=== PATIENT | female | born 1960 | race Caucasian/White ===

== ENCOUNTER 2019-06-03 15:48 | Emergency (ER) | payer SELFPAY ==
[2019-06-03 15:49] VITALS: BP 121/75; PULSE 81; RESP 20; TEMP 36.8; O2SAT 97; BMI 20.7
--- NOTE | 2019-06-03 16:13 | W.ED.SOB ---
HPI - SOB/Dyspnea General: Chief Complaint: Shortness of Breath/Dyspnea Stated Complaint: SOB Time Seen by Provider: 06/03/19 16:13 Source: patient Mode of arrival: ambulatory Limitations: no limitations History of Present Illness: HPI Narrative: Patient is a very pleasant 59-year-old female who presents to ED today with complaints of a productive cough, feeling weak, fatigue, body aches, and a fever of 101.7 that initially began on ; patient states fever has subsided since then but continues to feel weak, have body aches, and is very bothered by this severe productive cough; states she will cough so hard that she will feel like she needs to vomit; she also reports some mild nonbloody diarrhea over the past 2 days; patient is an otherwise very healthy female with no past medical conditions and takes no daily medications Associated symptoms: Reports chest congestion and fever(s) (on ); Deny abdominal pain, chest pain, dizziness, hemoptysis, lightheadedness, nausea, palpitations, syncope or vomiting Review of Systems Const: Reports: fever (on ), body aches and fatigue; Denies: chills Eyes: Denies: blurry vision ENMT: Denies: enlarged tonsils or painful swallowing Card: Denies: chest pain, palpitations, irregular heart rhythm, edema, lightheadedness, syncope or pre-syncope Resp: Reports: shortness of breath, productive cough, pain on inspiration and chest congestion; Denies: non-productive cough, wheezing, stridor, change in phlegm color or coughing up blood GI: Denies: abdominal pain, nausea, vomiting or diarrhea : Denies: flank pain, difficulty urinating, painful urination or urinary frequency Musc: Denies: neck pain or back pain Skin/Breast: Denies: rash Neuro: Reports: headache; Denies: numbness in extremities, weakness in extremities, changes in sensation, lack of coordination, frequent falls or dizziness PFSH ED PFSH: Statuses (acute, chronic, etc) shown below reflect problem list status as previously entered and may not be historically accurate Social History Smoking and tobacco status: never smoked Physical Exam Const: COMMON NORMALS: no apparent distress, average body habitus, oriented x3, no limitations, healthy appearing, alert and well nourished HENMT: COMMON NORMALS: normocephalic and head/scalp atraumatic HEAD & SCALP: normocephalic and atraumatic Eye: COMMON NORMALS: PERRL and EOMs intact bilaterally PUPIL: Yes PERRL Neck/C-Spine: COMMON NORMALS: full ROM, no lymphadenopathy, supple and no meningeal signs Chest: COMMONS NORMALS: inspection of chest normal Resp: COMMON NORMALS: normal respiratory effort and clear to auscultation bilaterally AUSCULTATION: clear to auscultation bilaterally Cardio: COMMON NORMALS: regular rate and regular rhythm RATE: regular rate RHYTHM: regular rhythm GI: COMMON NORMALS: normal to inspection, nondistended, normoactive bowel sounds, soft to palpation, non-tender, no hepatosplenomegaly and no masses PALPATION: Yes soft and Yes no hepatosplenomegaly : COMMON NORMALS: Yes no CVA tenderness BLADDER/KIDNEY EXAM: Yes no CVA tenderness Back/Pelvis: COMMON NORMALS: no CVA tenderness and thoracic and lumbar spine normal to inspection Extremity: COMMON NORMALS: normal to inspection Neuro: THEE COMA SCALE: document GCS findings Thee coma scale eye opening: Spontaneous [place] coma scale verbal response: Orientated [place] coma scale motor response: Obey commands Thee coma scale total score: 15 COMMON NORMALS: oriented x3 SENSORIUM/ORIENTATION: Yes alert MENINGEAL SIGNS: Yes no meningeal signs Skin: COMMON NORMALS: no rashes or lesions noted GENERAL SKIN EXAM: no rashes or lesions noted Course Vital Signs: Vital signs: Vital Signs Temperature 98.3 F 06/03/19 15:49 Pulse Rate 92 06/03/19 23:28 Respiratory Rate 16 06/03/19 23:28 Blood Pressure 123/71 06/03/19 23:28 Pulse Oximetry 95 06/03/19 23:28 MDM - SOB/Dyspnea Lab Data: Labs: Lab Results 06/03/19 06/03/19 06/03/19 Range/Units 17:00 17:00 17:30 WBC 2.3 L (4.0-10.0) 10^3/ uL RBC 4.70 (4.1-5.3) 10^6/u L Hgb 13.4 (11.5-15.3) g/dL Hct 39.9 (37.0-47.0) % MCV 84.9 (81-99) fL MCH 28.5 (28.0-34.0) pg MCHC 33.6 (30.0-36.0) g/dL RDW 12.5 (12.1-15.1) % Plt Count 183 (130-400) 10^3/c mm MPV 9.5 (7.4-10.4) fL Neut % (Auto) 44.5 % Lymph % (Auto) 39.2 % [place] % (Auto) 15.9 % Eos % (Auto) 0.0 % Baso % (Auto) 0.4 % Neut # (Auto) 1.0 L (1.8-7.7) 10^3/u L Lymph # (Auto) 0.9 (0.8-4.8) 10^3/u L [place] # (Auto) 0.4 (0.2-0.9) 10^3/u L Eos # (Auto) 0.0 (0.0-0.8) 10^3/u L Baso # (Auto) 0.0 (0.0-0.1) 10^3/u L Nucleated RBC % (a uto) 0 % Nucleated RBCs # 0.0 /100WBC Sodium 135 L (136-145) mmol/L Potassium 3.6 (3.5-5.1) mmol/L Chloride 95 L (98-107) mmol/L Carbon Dioxide 27 (22-29) mmol/L Anion Gap 16.6 (5-19) BUN 8 (6-20) mg/dL Creatinine 0.8 (0.5-0.9) mg/dL GFR Calculation 73.9 L (90-130) mL/min Glucose 112 H (74-109) mg/dL Calcium 9.0 (8.5-10.5) mg/dL Total Bilirubin 0.2 (0.15-1.2) mg/dL AST 47 H (0-32) U/L ALT 28 (0-33) U/L Alkaline Phosphata se 75 (35-105) IU/L Total Protein 7.0 (6.6-8.7) g/dL Albumin 3.9 (3.5-5.2) g/dL Globulin 3.1 (1.3-4.6) g/dL Urine Color (Yellow) Urine Appearance (CLEAR) Urine pH (5-7) Ur Specific Gravit y (1.005-1.030) Urine Protein (Negative) Urine Glucose (UA) (Normal) Urine Ketones (Negative) Urine Occult Blood (Negative) Urine Nitrate (Negative) Urine Bilirubin (NEGATIVE) Urine Urobilinogen (Negative) mg/dL Ur Leukocyte Luz ase (Negative) Urine RBC (0-2) /hpf Urine WBC (0-5) /hpf Ur Squamous Epith Cells (0-5) Urine Bacteria (NONE) Urine Mucus Influenza Type A A g Negative (Negative) POC Influenza B Ag Negative (Negative) 06/03/19 Range/Units 17:40 WBC (4.0-10.0) 10^3/ uL RBC (4.1-5.3) 10^6/u L Hgb (11.5-15.3) g/dL Hct (37.0-47.0) % MCV (81-99) fL MCH (28.0-34.0) pg MCHC (30.0-36.0) g/dL RDW (12.1-15.1) % Plt Count (130-400) 10^3/c mm MPV (7.4-10.4) fL Neut % (Auto) % Lymph % (Auto) % [place] % (Auto) % Eos % (Auto) % Baso % (Auto) % Neut # (Auto) (1.8-7.7) 10^3/u L Lymph # (Auto) (0.8-4.8) 10^3/u L [place] # (Auto) (0.2-0.9) 10^3/u L Eos # (Auto) (0.0-0.8) 10^3/u L Baso # (Auto) (0.0-0.1) 10^3/u L Nucleated RBC % (a uto) % Nucleated RBCs # /100WBC Sodium (136-145) mmol/L Potassium (3.5-5.1) mmol/L Chloride (98-107) mmol/L Carbon Dioxide (22-29) mmol/L Anion Gap (5-19) BUN (6-20) mg/dL Creatinine (0.5-0.9) mg/dL GFR Calculation (90-130) mL/min Glucose (74-109) mg/dL Calcium (8.5-10.5) mg/dL Total Bilirubin (0.15-1.2) mg/dL AST (0-32) U/L ALT (0-33) U/L Alkaline Phosphata se (35-105) IU/L Total Protein (6.6-8.7) g/dL Albumin (3.5-5.2) g/dL Globulin (1.3-4.6) g/dL Urine Color Straw (Yellow) Urine Appearance Clear (CLEAR) Urine pH 5 (5-7) Ur Specific Gravit y 1.010 (1.005-1.030) Urine Protein Trace (Negative) Urine Glucose (UA) Norm (Normal) Urine Ketones Negative (Negative) Urine Occult Blood Neg (Negative) Urine Nitrate Negative (Negative) Urine Bilirubin Neg (NEGATIVE) Urine Urobilinogen Norm (Negative) mg/dL Ur Leukocyte Luz ase Negative (Negative) Urine RBC None (0-2) /hpf Urine WBC Rare (0-5) /hpf Ur Squamous Epith Cells 0-4 H (0-5) Urine Bacteria Trace (NONE) Urine Mucus Trace Influenza Type A A g (Negative) POC Influenza B Ag (Negative) Discharge Plan Discharge Patient Disposition: Home, Self-Care Clinical Impression: Bronchitis Condition: Stable Prescriptions: New Zithromax Z-Marquis 250 mg tablet See Rx Instructions .ROUTE .COMPLEX Qty: 6 RF: 0 prednisone 10 mg tablet 10 mg PO DAILY Qty: 10 RF: 0 No Action promethazine 25 mg tablet 25 mg PO TID PRN (Reason: nausea and vomiting) 4 Days Qty: 10 RF: 1 sertraline 25 mg Tablet 25 mg PO DAILY RF: 0 Discharge Orders: Discharge Order (Routine); Ordered 06/03/19 Ordered By: Adeel Nash Referrals: Maritza Lamas MD [Primary Care Provider] - Discharge Diet: Usual diet Discharge Activity: Increase activity as tolerated Patient Instructions: Acute Bronchitis (ED) Activity Restrictions/Additional Instructions: Follow-up with medical provider as directed. Take medications as prescribed. Return to the ER or your medical provider if condition worsens. Please read and understand discharge instructions. If any questions ask please. 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
--- NOTE | 2019-06-03 16:34 | XRR_ITS ---
PROCEDURE INFORMATION: Exam: XR Chest, 1 View Exam date and time: 06/03/2019 4:51 PM Age: 59 years old Clinical indication: Patient HX: Cough x3-4 days, PT denies surg on chest, PT denies CA, PT states she is an ex smoker; Additional info: Cough/congestion TECHNIQUE: Imaging protocol: XR of the chest Views: 1 view. COMPARISON: No relevant prior studies available. FINDINGS: Lungs: Unremarkable. No consolidation. Pleural space: Unremarkable. No pleural effusion. No pneumothorax. Heart/Mediastinum: Unremarkable. No cardiomegaly. Bones/joints: Unremarkable. XR/XR chest 1V portable [id number] IMPRESSION: No acute findings.
[2019-06-03 17:12] LABS: Basophils % 0.4 %; Hematocrit 39.9 % (37.0-47.0); Hemoglobin 13.4 g/dL (11.5-15.3); Lymphocytes # 0.9 10^3/uL (0.8-4.8); Lymphocytes % 39.2 %; Mean Corpuscular HGB Conc 33.6 g/dL (30.0-36.0); Mean Corpuscular Hemoglobin 28.5 pg (28.0-34.0); Mean Corpuscular Volume 84.9 fL (81-99); Mean Platelet Volume 9.5 fL (7.4-10.4); Monocytes # 0.4 10^3/uL (0.2-0.9); Monocytes % 15.9 %; Neutrophils % 44.5 %; Nucleated Red Blood Cells % 0 %; Platelet Count 183 10^3/cmm (130-400); Red Cell Distribution Width 12.5 % (12.1-15.1); White Blood Count 2.3 10^3/uL (4.0-10.0)
[2019-06-03 17:20] LABS: Alanine Aminotransferase 28 U/L (0-33); Albumin Level 3.9 g/dL (3.5-5.2); Alkaline Phosphatase 75 IU/L (35-105); Anion Gap 16.6 (5-19); Aspartate Amino Transferase 47 U/L (0-32); Blood Urea Nitrogen 8 mg/dL (6-20); Carbon Dioxide 27 mmol/L (22-29); Chloride 95 mmol/L (98-107); Globulin 3.1 g/dL (1.3-4.6); Glomerular Filtration Rate 73.9 mL/min (90-130); Glucose 112 mg/dL (74-109); Potassium 3.6 mmol/L (3.5-5.1); Sodium 135 mmol/L (136-145); Total Bilirubin 0.2 mg/dL (0.15-1.2)
[2019-06-03 17:28] LABS: Slide Review Slide Review Perform
[2019-06-03 18:28] LABS: Add Urine Microscopic? YES; Bilirubin Urine Neg (NEGATIVE); Blood Urine Neg (Negative); Glucose Urine UA Norm (Normal); Ketones Urine Negative (Negative); Leukocyte Esterase Urine Negative (Negative); Nitrate Urine Negative (Negative); Protein Urine Trace (Negative); Urine Appearance Clear (CLEAR); Urine Color Straw (Yellow); Urobilinogen Urine Norm (Negative); pH Urine 5 (5-7)
[2019-06-03 18:40] LABS: Bacteria Urine TRACE; Squamous Epithelial Cell Urine 0-4 (0-5); WBC Urine RARE /hpf (0-5)
[2019-06-03 18:41] LABS: Add Urine Culture? No; Mucus Urine TRACE
[2019-06-03 18:43] LABS: Influenza A by IFA Negative (Negative); Influenza B by IFA Negative (Negative)
[2019-06-03] MEDS: azithromycin 250 mg Tablet 500 MG PO (19:17)
[2019-06-03] MEDS: predniSONE 20 mg Tablet PO (19:17)
[2019-06-03 23:28] VITALS: BP 123/71; PULSE 92; RESP 16; O2SAT 95
== END 2019-06-03 19:15 | disposition home or self-care (01) ==
PROVIDERS: Physician Assistant; Emergency Provider Nurse Practitioner Family; Family Provider Family Medicine; PCP Family Medicine
DX: J40 Bronchitis, not specified as acute or chronic (principal)
CPT/HCPCS: 36415; 71045; 80053; 81001; 85025; 87804; 99282; J7512; Q0144

== ENCOUNTER → 2019-06-13 09:03 | Outpatient (BNVA) | payer SELFPAY | PROVIDERS: Family Provider Family Medicine; PCP Family Medicine; Referring Provider Family Medicine; Visit Provider Family Medicine | DX: D70.9 Neutropenia, unspecified (principal) | CPT/HCPCS: 85025 ==

== ENCOUNTER → 2021-01-15 12:00 | Outpatient (BNVA) | payer OTHER, SELFPAY | PROVIDERS: Family Provider Family Medicine; PCP Family Medicine; Visit Provider Nurse Practitioner Family | DX: Z20.822 Contact with and (suspected) exposure to COVID-19 (principal) | CPT/HCPCS: 87426 ==

== ENCOUNTER 2021-01-16 10:49 | Outpatient (CLI) | payer OTHER, SELFPAY ==
[2021-01-16 11:26] VITALS: BP 123/74; PULSE 80; RESP 18; TEMP 36.8; O2SAT 98; BMI 22.2
[2021-01-16 11:58] VITALS: BP 113/69; PULSE 74; RESP 18; O2SAT 96
[2021-01-16 12:49] VITALS: BP 113/67; PULSE 75; RESP 16; TEMP 36.8; O2SAT 98
== END 2021-01-16 10:50 | disposition home or self-care (01) ==
PROVIDERS: PCP Family Medicine; Visit Provider Nurse Practitioner Family
DX: U07.1 COVID-19 (principal)
CPT/HCPCS: 96365

== ENCOUNTER → 2021-04-13 16:17 | Outpatient (BNVA) | payer OTHER, SELFPAY | PROVIDERS: PCP Family Medicine; Visit Provider Nurse Practitioner Family | DX: Z20.822 Contact with and (suspected) exposure to COVID-19 (principal) | CPT/HCPCS: 87635 ==